=== PATIENT | female | born 1970 | race African-American/Black ===

== ENCOUNTER 2018-12-18 20:59 | Emergency (ER) | payer MEDICAID ==
[~2018-12-18] VITALS: Ht 180.3 cm; Wt 100.0 kg
[2018-12-18 21:21] VITALS: BP 142/89
== END 2018-12-19 06:00 | disposition left against medical advice (07) ==
LOC: ER 20:59
DX: Z53.21 Procedure and treatment not carried out due to patient leaving prior to being seen by health care provider (principal)